=== PATIENT | female | born 1985 | race Caucasian/White ===

== ENCOUNTER 2020-05-30 11:08 | Emergency (ER) | payer SELFPAY ==
[2020-05-30 11:29] VITALS: BP 140/90; PULSE 69; RESP 20; TEMP 36.7; O2SAT 100
--- NOTE | 2020-05-30 11:53 | ED.GENADULT ---
HPI - General Adult General Chief complaint: Urogenital-Female Stated complaint: UTI Source: patient Mode of arrival: ambulatory Limitations: no limitations History of Present Illness HPI narrative: Patient presents for evaluation of urinary symptoms for the last week. She believes she has a UTI. Symptoms include urinary frequency, dysuria, urgency, and decreased volume. Denies any fever, chills, nausea, vomiting, vaginal bleeding or discharge. She has experienced some left flank pain. She is sexually active, not on contraception. LMP 2 weeks ago. States that she is unable to conceive due to some type of unknown surgical procedure in the past. Related Data Home Medications Medication Instructions Recorded Confirmed phenazopyridine [Azo] 05/30/20 Allergies Allergy/AdvReac Type Severity Reaction Status Date / Time No Known Allergies Allergy Verified 05/30/20 11:26 Review of Systems Review of Systems: Narrative: CONSTITUTIONAL: Denies fever, chills, or sweats. EYES: Denies visual changes, redness, or discharge. ENT: Denies rhinorrhea, congestion, sore throat, or otalgia. CARDIOVASCULAR: Denies chest pain, palpitations, or edema. RESPIRATORY: Denies cough or dyspnea. GASTROINTESTINAL: Denies abdominal pain, nausea, vomiting, or diarrhea. GENITOURINARY: Reports dysuria, urinary urgency, frequency and decreased output SKIN: Denies rash or itching. MUSCULOSKELETAL: Reports left flank pain. Denies joint pain, or myalgia. NEUROLOGIC: Denies headache, numbness, dizziness, or weakness. PSYCHIATRIC: Denies anxiety or depression. [facility] Past Medical History Medical History (Updated 05/30/20 @ 12:26 by SKIP Cornelius, ) History of ectopic No pertinent past medical history Surgical History Surgical History History of oophorectomy Family History Family History Mother No pertinent past medical history Father No pertinent past medical history Mother No pertinent past medical history Social History Social History Smoking status: Never smoker Substance use: never Living arrangements: other Additional living arrangements comments: lives with significant other Gender identity (if verbalized by the patient): Female Sexual Orientation (if Verbalized by the Patient): Straight or Heterosexual Spiritual care concerns: No Exam Narrative: Exam Narrative: GENERAL: Well-appearing, well-nourished, and in no acute distress. HEAD: Normocephalic, atraumatic. EYES: PERRLA and EOMI. ENT: Nares clear, no rhinorrhea or epistaxis. Mucous membranes moist. Oropharynx without tonsillar hypertrophy exudate or other lesions. Bilateral TMs pearly rocha nonbulging NECK: Supple. No adenopathy or masses. No carotid bruits or JVD CHEST: Clear to auscultation. No respiratory distress. No wheezes rales or rhonchi HEART: Regular rate and rhythm. No murmur heard. Normal peripheral pulses. ABDOMEN: Soft, nontender, nondistended, normal active bowel sounds. No CVA tenderness : No external genital lesions. No adnexal tenderness. No CMT. Moderate amount of thick milky white drainage in vaginal vault EXTREMITIES: Normal range of motion. No edema. SKIN: Warm, dry, no rash. NEURO: No focal deficits. Alert and oriented x3. PSYCH: Normal mood and affect. Course Course Emergency Course: This is a 35-year-old female who presented with urinary symptoms for the last week. Urine dipstick was essentially unremarkable. Will send for culture. Discussed options with patient including sending her for CT imaging to rule out kidney stone versus other. She has no CVA tenderness or abdominal tenderness to suggest such and she declined further evaluation in that regard. She did opt to have a pelvic exam performed which revealed a thick whi
--- NOTE | 2020-05-30 12:24 | PC.NURSE ---
pelvic exam complete
== END 2020-05-30 12:43 | disposition home or self-care (01) ==
PROVIDERS: Emergency Provider Nurse Practitioner
DX: N76.0 Acute vaginitis (principal)
CPT/HCPCS: 81003; 87070; 87086; 87088; 87491; 87591; 87661; 99213; G0463

== ENCOUNTER 2021-09-09 17:18 | Emergency (ER) | payer SELFPAY ==
--- NOTE | 2021-09-09 17:20 | ED.SKABFB ---
HPI - Skin/Abscess/Foreign Bdy General Stated complaint: Ears red and neck gets blotchy Time Seen by Provider: 09/09/21 17:20 Source: patient and RN notes reviewed History of Present Illness HPI narrative: Patient is a 36-year-old female who presents the urgent care with complaints of red ears and blotchy neck. Patient states that typically when that happens her blood pressure is elevated . Patient states that she went to the chiropractor 2 weeks ago and her chiropractor told her that she had elevated blood pressure. Ever since then the patient has continuously checked her blood pressure at a local pharmacy and readings have been consistently over normal. Patient denies of any chest pain, headaches, shortness of breath, nausea, vomiting or blurry vision. Patient states that hypertension does run in her family. No other acute complaints. No acute distress noted. Patient aware of the plan of care. Some parts of this dictation were generated by voice recognition software and may contain typographical and/or grammatical inaccuracies. Related Data Allergies Allergy/AdvReac Type Severity Reaction Status Date / Time No Known Allergies Allergy Verified 05/30/20 11:26 Review of Systems Review of Systems: CONSTITUTIONAL: Denies fever, chills, or sweats. EYES: Denies visual changes, redness, or discharge. ENT: Denies rhinorrhea, congestion, sore throat, or otalgia. CARDIOVASCULAR: Denies chest pain, palpitations, or edema. RESPIRATORY: Denies cough or dyspnea. GASTROINTESTINAL: Denies abdominal pain, nausea, vomiting, or diarrhea. GENITOURINARY: Denies dysuria or hematuria. SKIN: Denies rash or itching. MUSCULOSKELETAL: Denies back pain, joint pain, or myalgia. NEUROLOGIC: Denies headache, numbness, or weakness. All other systems reviewed are negative, except as documented in HPI. [facility] Past Medical History Medical History (Updated 09/09/21 @ 17:52 by SKIP Vickers) History of ectopic No pertinent past medical history Surgical History Surgical History History of oophorectomy Family History Family History Mother No pertinent past medical history Father No pertinent past medical history Mother No pertinent past medical history Social History Social History Smoking status: Never smoker Substance use: never Additional living arrangements comments: lives with significant other Gender identity (if verbalized by the patient): Female Sexual Orientation (if Verbalized by the Patient): Straight or Heterosexual Spiritual care concerns: No Comments At the time of my signature, I reviewed and agree with the nursing past medical, surgical, social, and family history. There is no relevant family history pertinent to the patient complaint. Exam Narrative: GENERAL: This is a well-nourished, well-developed patient, in no apparent distress. HEAD: normocephalic, atraumatic. EYES: PERRL. Sclera clear/white. Vision is grossly intact. EARS: External ears normal NOSE: External nose normal with no obvious nasal discharge, nares without redness, no rhinorrhea. THROAT: Mucous membranes moist NECK: Neck supple CARDIOVASCULAR: Regular rate and rhythm without murmurs, gallops, or rubs. RESPIRATORY: Clear to auscultation. Breath sounds equal bilaterally. No wheezes, rales, or rhonchi. SKIN: warm, intact with no suspicious lesions or rash, good texture and turgor. NEURO: awake, alert, and oriented to person, place and time. There were no obvious focal neurologic abnormalities. EXTREMITIES: No clubbing, cyanosis, or edema. Course Course Level of Care: Express Care Visit Vital Signs Vital signs: Vital Signs Temperature 98.2 F 09/09/21 17:22 Pulse Rate 84 09/09/21 17:22 Respiratory Rate 16 09/09/21 17:22 Blood Pre
[2021-09-09 17:22] VITALS: BP 186/105; PULSE 84; RESP 16; TEMP 36.8; O2SAT 100
== END 2021-09-09 17:59 | disposition home or self-care (01) ==
PROVIDERS: Emergency Provider Nurse Practitioner Family
DX: I10 Essential (primary) hypertension (principal)
CPT/HCPCS: 99211; G0463

== ENCOUNTER 2021-09-13 13:41 | Outpatient (CLI) | payer OTHER, SELFPAY ==
[2021-09-13 19:10] LABS: Hematocrit 37.6 % (37.0-47.0); Hemoglobin 12.8 g/dL (12.0-15.0); Mean Corpuscular Hemoglobin 29.8 pg (26-34); Mean Corpuscular Volume 87.6 fl (80-100); Mean Platelet Volume 11.1 fl (7.4-10.4); Platelet Count Result 276 k/mm3 (150-375); Red Blood Count 4.29 M/mm3 (4.2-5.4); Red Cell Distribution Width 12.2 % (11.5-14.5); White Blood Count 6.8 K/mm3 (4.5-10.0)
[2021-09-13 19:19] LABS: Alanine Aminotransferase 14 U/L (4-35); Albumin Level 3.8 g/dL (3.5-5.1); Alkaline Phosphatase 74 U/L (38-126); Anion Gap 8 mmol/L (8-16); Aspartate Amino Transferase 21 U/L (14-36); Bilirubin,Total 0.3 mg/dL (0.2-1.3); Blood Urea Nitrogen 12 mg/dL (7-17); Calcium 8.4 mg/dL (8.4-10.2); Carbon Dioxide 24 mmol/L (22-30); Chloride 106 mmol/L (98-107); Cholesterol 157 mg/dL (0-200); Estimated Glomerular Filt Rate > 60; Glucose 88 mg/dL (65-110); HDL Direct 41 mg/dL; Potassium 3.9 mmol/L (3.4-5.0); Sodium 138 mmol/L (137-145); Triglycerides 78 mg/dL (<150)
[2021-09-13 19:30] LABS: LDL Cholesterol Direct 81 mg/dL
[2021-09-13 19:50] LABS: Thyroid Stimulating Hormone Reflex 0.423 uIU/mL (0.465-4.68)
[2021-09-13 20:18] LABS: Free T4 Free Thyroxine Reflex 1.56 ng/dL (0.78-2.19)
== END 2021-09-13 13:42 | disposition home or self-care (01) ==
LOC: ANHBWCLAB 13:42
PROVIDERS: PCP Family Medicine; Visit Provider Family Medicine
DX: Z00.00 Encounter for general adult medical examination without abnormal findings (principal); R53.83 Other fatigue; I10 Essential (primary) hypertension; R51.9 Headache, unspecified
CPT/HCPCS: 36415; 80053; 80061; 84439; 84443; 84480; 85027

== ENCOUNTER 2022-02-22 15:08 | Emergency (ER) | payer OTHER, SELFPAY ==
[2022-02-22 15:12] VITALS: BP 127/78; PULSE 95; RESP 16; TEMP 36.7; O2SAT 100
--- NOTE | 2022-02-22 15:18 | ED.URI ---
HPI - URI/Sore Throat General Chief Complaint: Upper Respiratory Infection Stated Complaint: Sinus pressure / swelling Time Seen by Provider: 02/22/22 15:20 Source: patient Mode of arrival: ambulatory Limitations: no limitations History of Present Illness HPI Narrative: Ms. Givens is a 36-year-old female patient presenting to the clinic today with complaints of sinus pressure and swelling. She reports she has had sinus drainage x2 weeks. Reports this morning she woke up and the right side of her upper cheek and eyelid with swelling MD elicited complaint: rhinorrhea, nasal congestion and sinus pain Related Data Allergies Allergy/AdvReac Type Severity Reaction Status Date / Time No Known Allergies Allergy Verified 02/22/22 15:19 Review of Systems Review of Systems: Pertinent positives per HPI. Patient denies any fever, chills, rash, headache, visual changes, dizziness, cough, shortness of breath, chest pain, palpitations, nausea, vomiting, diarrhea, constipation, abdominal pain, or any urinary issues. PMF Past Medical History Medical History History of ectopic No pertinent past medical history Surgical History Surgical History History of oophorectomy Family History Family History Mother No pertinent past medical history Father No pertinent past medical history Mother No pertinent past medical history Social History Social History Smoking status: Never smoker Substance use: never Additional living arrangements comments: lives with significant other Gender identity (if verbalized by the patient): Female Sexual Orientation (if Verbalized by the Patient): Straight or Heterosexual Spiritual care concerns: No Comments At the time of my signature, I reviewed and agree with the nursing past medical, surgical, social, and family history. There is no relevant family history pertinent to the patient complaint. Exam Narrative: General: Well-developed, obese, in no apparent distress Head: Normocephalic, atraumatic Eyes: Pupils equally round and reactive to light bilaterally, EOM intact, sclera and conjunctive clear, no discharge, lids normal Ears: TMs intact, dull, red, ear canals clear, no drainage, grossly hearing normal. Nose: Nares patent, clear nasal discharge, CV inflammation, maxillary sinus tenderness. Mouth: Oral pharynx without lesions or masses, good dentition, MMM. Postnasal Neck: Supple, trachea midline, no enlargement of anterior or posterior cervical nodes, no thyroid masses or goiter palpable. Cardio: Regular rate and rhythm, s1 and s2 normal, no murmur appreciated. Resp: Clear to auscultation bilaterally, no rhonchi, rales, wheezing or rubs Course Course Emergency Course: Portions of this record may have been created with voice recognition software. Level of Care: Express Care Visit Vital Signs Vital signs: Vital Signs Temperature 36.7 C 02/22/22 15:12 Pulse Rate 95 02/22/22 15:12 Respiratory Rate 16 02/22/22 15:12 Blood Pressure 127/78 02/22/22 15:12 Pulse Oximetry 100 02/22/22 15:12 Oxygen Delivery Room Air 02/22/22 15:12 Temperature 36.7 C 02/22/22 15:19 Pulse Rate 95 02/22/22 15:19 Respiratory Rate 16 02/22/22 15:19 Blood Pressure 127/78 02/22/22 15:19 Pulse Oximetry 100 02/22/22 15:19 Oxygen Delivery Room Air 02/22/22 15:19 Vital signs reviewed MDM - URI/Sore Throat MDM Narrative Medical decision making narrative: At the time of visit patient is resting comfortably on the exam table. I suspect patient has acute rhinosinusitis and will treat her with a prescription for some prednisone and some Augmentin. Supportive measures were discussed with the patient and
[2022-02-22 15:19] VITALS: BP 127/78; PULSE 95; RESP 16; TEMP 36.7; O2SAT 100
== END 2022-02-22 15:28 | disposition home or self-care (01) ==
PROVIDERS: Emergency Provider Nurse Practitioner Family; PCP Family Medicine
DX: J01.90 Acute sinusitis, unspecified (principal); I10 Essential (primary) hypertension
CPT/HCPCS: 99213; G0463

== ENCOUNTER 2022-07-16 10:17 | Emergency (ER) | payer OTHER, SELFPAY ==
[2022-07-16 10:20] VITALS: BP 122/74; PULSE 103; RESP 20; TEMP 36.5; O2SAT 96
--- NOTE | 2022-07-16 10:40 | ED.GENADULT ---
HPI - General Adult General Chief complaint: Ear Stated complaint: ear ache Source: patient Mode of arrival: ambulatory Limitations: no limitations History of Present Illness HPI narrative: Patient presents for evaluation of right-sided ear pain since yesterday. She states when she bends forward she feels a throbbing sensation in the right ear. She woke from sleep this morning with drainage on her pillow. She has muffled hearing on the right. No fever, chills, nausea, vomiting, sore throat, cough, tinnitus. She has a history of ruptured tympanic membrane on the right in the past. Related Data Home Medications Medication Instructions Recorded Confirmed amlodipine 10 mg tablet mg 07/16/22 Allergies Allergy/AdvReac Type Severity Reaction Status Date / Time No Known Allergies Allergy Verified 02/22/22 15:19 Review of Systems Review of Systems: CONSTITUTIONAL: Denies fever, chills, or sweats. EYES: Denies visual changes, redness, or discharge. ENT: Reports right-sided ear pain, drainage, and muffled hearing CARDIOVASCULAR: Denies chest pain, palpitations, or edema. RESPIRATORY: Denies cough or dyspnea. GASTROINTESTINAL: Denies abdominal pain, nausea, vomiting, or diarrhea. GENITOURINARY: Denies dysuria or hematuria. SKIN: Denies rash or itching. MUSCULOSKELETAL: Denies back pain, joint pain, or myalgia. NEUROLOGIC: Denies headache, numbness, dizziness, or weakness. PSYCHIATRIC: Denies anxiety or depression. [facility] Past Medical History Medical History History of ectopic No pertinent past medical history Surgical History Surgical History History of oophorectomy Family History Family History Mother No pertinent past medical history Father No pertinent past medical history Mother No pertinent past medical history Social History Social History Smoking status: Never smoker Substance use: never Living arrangements: other Additional living arrangements comments: lives with significant other Gender identity (if verbalized by the patient): Female Sexual Orientation (if Verbalized by the Patient): Straight or Heterosexual Spiritual care concerns: No Exam Narrative: GENERAL: Well-appearing, well-nourished, and in no acute distress. HEAD: Normocephalic, atraumatic. EYES: PERRLA and EOMI. ENT: Nares clear, no rhinorrhea or epistaxis. Mucous membranes moist. Oropharynx without tonsillar hypertrophy exudate or other lesions. Right tympanic membrane erythema with middle ear fluid present. There is yellow drainage in the right ear canal with a suspected perforation of the TM NECK: Supple. No adenopathy or masses. No carotid bruits or JVD CHEST: Clear to auscultation. No respiratory distress. No wheezes rales or rhonchi HEART: Regular rate and rhythm. No murmur heard. Normal peripheral pulses. ABDOMEN: Soft, nontender, nondistended, normal active bowel sounds. EXTREMITIES: Normal range of motion. No edema. SKIN: Warm, dry, no rash. NEURO: No focal deficits. Alert and oriented x3. PSYCH: Normal mood and affect. Course Course Emergency Course: This is a 37-year-old female who presented for evaluation of your complaints. She has evidence of otitis media on exam. I suspect she perforated her tympanic membrane. Will treat with Augmentin and ofloxacin. Follow-up outpatient for further evaluation treatment go to the ER for worsening symptoms. Patient in agreement with plan of care. Level of Care: Express Care Visit Vital Signs Vital signs: Vital Signs Temperature 36.5 C 07/16/22 10:20 Pulse Rate 103 H 07/16/22 10:20 Respiratory Rate 20 07/16/22 10:20 Blood Pressure 122/74 07/16/22 10:20 Pulse Oximetry 96 07/16/22 10:20 Oxyge
== END 2022-07-16 10:45 | disposition home or self-care (01) ==
PROVIDERS: Emergency Provider Nurse Practitioner; PCP Family Medicine
DX: H66.91 Otitis media, unspecified, right ear (principal); H72.91 Unspecified perforation of tympanic membrane, right ear
CPT/HCPCS: 99213; G0463

== ENCOUNTER 2023-04-05 14:13 | Emergency (ER) | payer OTHER, SELFPAY ==
[2023-04-05 14:21] VITALS: BP 139/83; PULSE 106; RESP 18; TEMP 36.7; O2SAT 99
--- NOTE | 2023-04-05 15:13 | ED.URI ---
HPI - URI/Sore Throat General Chief Complaint: Upper Respiratory Infection Stated Complaint: Sore Throat Source: patient and RN notes reviewed History of Present Illness HPI Narrative: 37 yo F presents to urgent care with complaints of a sore throat, congestion, cough, and headache since yesterday. Denies any fever, chills, chest pain, SOB, N/V/D, or ear pain. Pt has not taken anything for her symptoms. Related Data Allergies Allergy/AdvReac Type Severity Reaction Status Date / Time No Known Allergies Allergy Verified 04/05/23 14:33 Review of Systems Review of Systems: Pertinent positives and pertinent negatives per HPI. [facility] Past Medical History Medical History History of ectopic No pertinent past medical history Surgical History Surgical History History of oophorectomy Family History Family History Mother No pertinent past medical history Father No pertinent past medical history Mother No pertinent past medical history Social History Social History Smoking status: Never smoker Substance use: never Living arrangements: other Additional living arrangements comments: lives with significant other Gender identity (if verbalized by the patient): Female Sexual Orientation (if Verbalized by the Patient): Straight or Heterosexual Spiritual care concerns: No Comments At the time of my signature, I reviewed and agree with the nursing past medical, surgical, social, and family history. There is no relevant family history pertinent to the patient complaint. Exam Narrative: GENERAL: This is a well-nourished, well-developed patient, in no apparent distress. HEAD: normocephalic, atraumatic. EYES: Sclera clear/white. Vision is grossly intact. EARS: External ears normal, auditory canals clear and without drainage, TMs normal without perforation. Hearing grossly intact. NOSE: External nose normal with no obvious nasal discharge, nares without redness, no rhinorrhea. THROAT: Mucous membranes moist, posterior pharynx clear. NECK: Neck supple, non-tender without lymphadenopathy, masses or thyromegaly. CARDIOVASCULAR: Regular rate and rhythm without murmurs, gallops, or rubs. RESPIRATORY: Clear to auscultation. Breath sounds equal bilaterally. No wheezes, rales, or rhonchi. SKIN: warm, intact with no suspicious lesions or rash, good texture and turgor. NEURO: awake, alert, and oriented to person, place and time. There were no obvious focal neurologic abnormalities. Course Course Level of Care: Express Care Visit Vital Signs Vital signs: Vital Signs Temperature 98.0 F 04/05/23 14:21 Pulse Rate 106 H 04/05/23 14:21 Respiratory Rate 18 04/05/23 14:21 Blood Pressure 139/83 04/05/23 14:21 Pulse Oximetry 99 04/05/23 14:21 Oxygen Delivery Room Air 04/05/23 14:21 Temperature 98.0 F 04/05/23 14:21 Pulse Rate 106 H 04/05/23 14:21 Respiratory Rate 18 04/05/23 14:21 Blood Pressure 139/83 04/05/23 14:21 Pulse Oximetry 99 04/05/23 14:21 Oxygen Delivery Room Air 04/05/23 14:21 reviewed MDM - URI/Sore Throat MDM Narrative Medical decision making narrative: Rapid strep is negative in the office; however we will send to the lab for confirmation; there is a small percentage chance that it can come back positive; if it is, we will call you in 2-3days; and your prescription will be call in to your pharmacy. However, there is NO indication for antibiotic at this time. -Increase your fluids and Vitamin C. -Oral rinses such as: Salt water gargles and/or may use topical anesthetic (eg. Chloraseptic spray) or lozenges to relieve dryness or throat pain. -Take tylenol and ibuprofen as needed for pain and fever as directed.
== END 2023-04-05 15:20 | disposition home or self-care (01) ==
PROVIDERS: Emergency Provider Nurse Practitioner Family; PCP Family Medicine
DX: B34.9 Viral infection, unspecified (principal); I10 Essential (primary) hypertension
CPT/HCPCS: 87081; 87880; 99213; G0463

== ENCOUNTER 2023-11-07 13:11 | Outpatient (CLI) | payer OTHER, SELFPAY ==
[2023-11-07 19:07] LABS: Hematocrit 39.8 % (37.0-47.0); Hemoglobin 12.6 g/dL (12.0-15.0); Mean Corpuscular HGB Conc 31.7 g/dl (32-36); Mean Corpuscular Hemoglobin 29.5 pg (26-34); Mean Corpuscular Volume 93.2 fl (80-100); Mean Platelet Volume 11.1 fl (7.4-10.4); Platelet Count Result 264 k/mm3 (150-375); Red Blood Count 4.27 M/mm3 (4.2-5.4); Red Cell Distribution Width 12.7 % (11.5-14.5); White Blood Count 6.9 K/mm3 (4.5-10.0)
[2023-11-07 19:59] LABS: Alanine Aminotransferase 19 U/L (6-35); Alkaline Phosphatase 67 U/L (38-126); Anion Gap 8 mmol/L (4-12); Aspartate Amino Transferase 38 U/L (14-36); Bilirubin,Total 0.6 mg/dL (0.2-1.3); Blood Urea Nitrogen 13 mg/dL (7-17); Calcium 8.8 mg/dL (8.4-10.2); Carbon Dioxide 24 mmol/L (22-30); Chloride 107 mmol/L (98-107); Cholesterol 156 mg/dL (0-200); Estimated Glomerular Filt Rate > 60; Glucose 134 mg/dL (65-110); HDL Direct 45 mg/dL; Potassium 3.7 mmol/L (3.4-5.0); Sodium 139 mmol/L (137-145); Triglycerides 75 mg/dL (<150)
[2023-11-07 20:10] LABS: LDL Cholesterol Direct 88 mg/dL
[2023-11-07 20:30] LABS: Thyroid Stimulating Hormone 0.265 uIU/mL (0.465-4.680)
[2023-11-07 20:32] LABS: Free T4 Free Thyroxine 1.35 ng/mL (0.78-2.19)
[2023-11-07 20:54] LABS: Vitamin D 25 Hydroxy 30.4 ng/mL
== END 2023-11-07 13:12 | disposition home or self-care (01) ==
LOC: ANHBWCLAB 13:13
PROVIDERS: PCP Family Medicine; Visit Provider Family Medicine
DX: I10 Essential (primary) hypertension (principal); R00.2 Palpitations; R51.9 Headache, unspecified; R53.83 Other fatigue; R79.89 Other specified abnormal findings of blood chemistry; Z00.00 Encounter for general adult medical examination without abnormal findings; E66.9 Obesity, unspecified
CPT/HCPCS: 36415; 80053; 80061; 82306; 82607; 83036; 84439; 84443; 85027

== ENCOUNTER 2024-02-12 16:53 | Emergency (ER) | payer OTHER, SELFPAY ==
[2024-02-12 17:06] VITALS: BP 145/82; PULSE 71; RESP 18; TEMP 36.2; O2SAT 100
--- NOTE | 2024-02-12 18:07 | ED.GENADULT ---
HPI - General Adult General Chief complaint: Upper Respiratory Infection Stated complaint: Sinus Problem Source: patient Mode of arrival: ambulatory Limitations: no limitations History of Present Illness HPI narrative: Patient presents for evaluation of sinus symptoms for last 3 weeks. Symptoms include sinus congestion, pressure in the bilateral maxillary regions, sneezing, occasional cough, and thick drainage from the nares. No fever, chills, nausea, vomiting. She has tried several emyn-[id number] agents without improvement in her symptoms or after. She does not smoke. Related Data Allergies Allergy/AdvReac Type Severity Reaction Status Date / Time No Known Allergies Allergy Verified 11/07/23 11:30 Review of Systems Review of Systems: CONSTITUTIONAL: Denies fever, chills, or sweats. EYES: Denies visual changes, redness, or discharge. ENT: Reports sinus congestion, maxillary sinus pressure, thick nasal drainage, and sneezing. CARDIOVASCULAR: Denies chest pain, palpitations, or edema. RESPIRATORY: Reports cough. Denies shortness of. breath GASTROINTESTINAL: Denies abdominal pain, nausea, vomiting, or diarrhea. GENITOURINARY: Denies dysuria or hematuria. SKIN: Denies rash or itching. MUSCULOSKELETAL: Denies back pain, joint pain, or myalgia. NEUROLOGIC: Denies headache, numbness, dizziness, or weakness. PSYCHIATRIC: Denies anxiety or depression. [facility] Past Medical History Medical History History of ectopic No pertinent past medical history Surgical History Surgical History History of oophorectomy Family History Family History Mother No pertinent past medical history Father No pertinent past medical history Mother No pertinent past medical history Social History Social History Smoking status: Never smoker Substance use: never Living arrangements: other Additional living arrangements comments: lives with significant other Gender identity (if verbalized by the patient): Female Sexual Orientation (if Verbalized by the Patient): Straight or Heterosexual Spiritual care concerns: No Exam Narrative: GENERAL: Well-appearing, well-nourished, and in no acute distress. HEAD: Normocephalic, atraumatic. EYES: PERRLA and EOMI. ENT: Nares clear, no rhinorrhea or epistaxis. Mucous membranes moist. Oropharynx without tonsillar hypertrophy exudate or other lesions. Bilateral maxillary sinus tenderness. Bilateral TMs pearly rocha nonbulging NECK: Supple. No adenopathy or masses. No carotid bruits or JVD CHEST: Clear to auscultation. No respiratory distress. No wheezes rales or rhonchi HEART: Regular rate and rhythm. No murmur heard. Normal peripheral pulses. ABDOMEN: Soft, nontender, nondistended, normal active bowel sounds. EXTREMITIES: Normal range of motion. No edema. SKIN: Warm, dry, no rash. NEURO: No focal deficits. Alert and oriented x3. PSYCH: Normal mood and affect. Course Course Emergency Course: This is a 38-year-old female who presented for evaluation of sinus symptoms. She meets criteria for bacterial sinusitis based upon duration of time in which she has been symptomatic. DC with Augmentin. Increase hydration. [id number] agents for symptom management. Follow primary provider. Go to the ER for worsening symptoms. Patient in agreement with plan of care. Level of Care: Express Care Visit Vital Signs Vital signs: Vital Signs Temperature 36.2 C L 02/12/24 17:06 Pulse Rate 71 02/12/24 17:06 Respiratory Rate 18 02/12/24 17:06 Blood Pressure 145/82 H 02/12/24 17:06 Pulse Oximetry 100 02/12/24 17:06 Oxygen Delivery Room Air 02/12/24 17:06 Temperature 36.2 C L 02/12/24 17:06 Pulse Rate 71
== END 2024-02-12 18:08 | disposition home or self-care (01) ==
PROVIDERS: Emergency Provider Nurse Practitioner; PCP Family Medicine
DX: J32.9 Chronic sinusitis, unspecified (principal); B96.89 Other specified bacterial agents as the cause of diseases classified elsewhere
CPT/HCPCS: 99213; G0463